=== PATIENT | female | born 1950 | race Caucasian/White ===

== ENCOUNTER 2016-09-19 12:00 | Emergency (ER) | payer MEDICARE, OTHER ==
[~2016-09-19] VITALS: Ht 154.9 cm; Wt 136.4 kg
[~2016-09-19 12:00] MED LIST: ASPI-825 PO; BECL8.7A5 IH; BUPR100 PO; GEMF600T3 PO; GLIP5TAB11 PO; INSLAN SQ; INSNOV SQ; METF1000 PO; METO50 PO; OMEP20 PO; SIMV40TA5 PO; TRAZ-147 PO
[2016-09-19 12:17] LABS: GLUCOSE,POINT OF CARE 214 MG/DL (70-110)
[2016-09-19] MEDS ORDERED: MORPHINE SULFATE 4 MG/ML SYRINGE IVP ONE (14:45)
[2016-09-19] MEDS ORDERED: KETOROLAC TROMETHAMINE 30 MG/ML VIAL IVP ONE (14:45)
[2016-09-19] MEDS ORDERED: ACETAMINOPHEN 1000 MG/ISO-OSM 100 ML IV ONE (16:00)
[2016-09-19] MEDS ORDERED: MORPHINE SULFATE 10 MG/ML SYRINGE IVP ONE ×2 (16:00→17:00)
[2016-09-19 18:47] LABS: GLUCOSE,POINT OF CARE 72 MG/DL (70-110)
[2016-09-19 19:18] VITALS: BP 119/63
== END 2016-09-19 19:20 | disposition home or self-care (01) ==
LOC: EMS 12:02
DX: M25.561 Pain in right knee (principal); E11.9 Type 2 diabetes mellitus without complications; I10 Essential (primary) hypertension; E78.00 Pure hypercholesterolemia, unspecified; K21.9 Gastro-esophageal reflux disease without esophagitis; J45.909 Unspecified asthma, uncomplicated; F17.210 Nicotine dependence, cigarettes, uncomplicated; Z88.0 Allergy status to penicillin; Z88.1 Allergy status to other antibiotic agents
CPT/HCPCS: 73562; 82948; 82962; 96365; 96375; 96376; 99284; J0131; J1885; J2270 ×2

== ENCOUNTER 2020-12-17 19:39 | Emergency (ER) | payer MEDICARE, OTHER ==
[~2020-12-17] VITALS: Ht 154.9 cm; Wt 63.6 kg
[~2020-12-17 19:39] MED LIST changes: +BUPR-121 PO; -BUPR100 PO; -GEMF600T3 PO; +GEMF600T89 PO; +SIMV-46 PO; -SIMV40TA5 PO; -TRAZ-147 PO; +TRAZ-186 PO
[2020-12-17 20:24] LABS: GLUCOMETER DEV NAME(LOC) ERT.5; GLUCOSE,POINT OF CARE 260 MG/DL (70-110)
[2020-12-18] MEDS ORDERED: HYDROCODONE/ACETAMINOPHEN 5-325 MG TABLET PO ONE
[2020-12-18] MEDS ORDERED: MORPHINE SULFATE 4 MG/ML SYRINGE IM ONE
[2020-12-18] MEDS ORDERED: KETOROLAC TROMETHAMINE 60 MG/2 ML VIAL IM ONE (01:15)
[2020-12-18 02:39] VITALS: BP 155/60
== END 2020-12-18 03:00 | disposition home or self-care (01) ==
LOC: EMS 19:49
DX: S80.11XA Contusion of right lower leg, initial encounter (principal); M25.551 Pain in right hip; J45.909 Unspecified asthma, uncomplicated; E11.9 Type 2 diabetes mellitus without complications; K21.9 Gastro-esophageal reflux disease without esophagitis; E78.00 Pure hypercholesterolemia, unspecified; I10 Essential (primary) hypertension; F17.210 Nicotine dependence, cigarettes, uncomplicated; Z79.4 Long term (current) use of insulin; Z88.0 Allergy status to penicillin; Z88.1 Allergy status to other antibiotic agents; W19.XXXA Unspecified fall, initial encounter; Y93.89 Activity, other specified; Y92.89 Other specified places as the place of occurrence of the external cause; Y99.8 Other external cause status
CPT/HCPCS: 73502; 73590; 82962; 93971; 96372; 99285; J1885; J2270